=== PATIENT | female | born 2000 | race African-American/Black ===

== ENCOUNTER 2021-09-24 04:07 | Emergency (ER) | payer SELFPAY ==
[2021-09-24 04:17] VITALS: BP 118/75; PULSE 78; RESP 18; TEMP 97.8
--- NOTE | 2021-09-24 05:12 | ED ---
General Adult HPI - General Chief complaint: Recheck/Abnormal Lab/Rx Stated complaint: Covid Test- [facility] Time Seen by Provider: 09/24/21 05:08 Source: patient, family Mode of arrival: ambulatory Limitations: no limitations - History of Present Illness Initial comments: This patient is 21-year-old woman who presents to have covid 19 test to cross to [facility] - Related Data Allergies Allergy/AdvReac Type Severity Reaction Status Date / Time No Known Allergies Allergy Verified 09/24/21 04:17 Review of Systems ROS Statement: Those systems with pertinent positive or pertinent negative responses have been documented in the HPI. ROS Other: All systems not noted in ROS Statement are negative. Past Medical History Past Medical History: No Reported History History of Any Multi-Drug Resistant Organisms: None Reported Past Surgical History: No Surgical Hx Reported Past Psychological History: No Psychological Hx Reported Smoking Status: Never smoker Past Alcohol Use History: None Reported Past Drug Use History: None Reported General Exam Limitations: no limitations Course Vital Signs 09/24/21 04:15 Temperature 97.8 F Pulse Rate 78 Respiratory 18 Rate Blood Pressure 118/75 O2 Sat by Pulse 100 Oximetry Medical Decision Making - Medical Decision Making Patient declines medical screening exam - Lab Data Lab Results 09/24/21 Range/Units 04:21 Coronavirus (PCR) Not Detected (Not Detectd) Disposition Clinical Impression: Encounter for immunological test Disposition: HOME SELF-CARE Condition: Good Is patient prescribed a controlled substance at d/c from ED?: No Referrals: None,Stated [Primary Care Provider] - 1-2 days
== END 2021-09-24 05:32 | disposition home or self-care (01) ==
LOC: EC 04:07
DX: Z11.59 Encounter for screening for other viral diseases (principal); Z20.822 Contact with and (suspected) exposure to COVID-19
CPT/HCPCS: 87635; 99282